=== PATIENT | female | born 1945 | race Caucasian/White ===

== ENCOUNTER 2016-10-15 09:18 | Inpatient (IN) | payer MEDICARE, BC ==
--- NOTE | ~2016-10-15 | DS ---
Discharge Summary [facility] [id number] [place]. [address] NAME: AMANUEL MONTESINOS : 45 STATUS : DIS IN PAT#: [id number] AGE: 71 ADM/REG DATE : 10/15/16 MR#: [id number] REPORT SERV DATE: 10/21/16 DICTATED BY: ROMANA HUFFMAN DATE: 10/20/16 REPORT STATUS : Draft TRANSCRIBED BY: MODL DATE: 10/20/16 ADMISSION DATE: 10/15/2016 DISCHARGE DATE: 10/19/2016 DISCHARGE DIAGNOSES: 1. Right hip fracture. 2. New-onset seizure. 3. Multiple sclerosis history. 4. Hypertension. 5. Anemia. 6. Prior deep vein thrombosis history. CONSULTATIONS: Dr. Mares with uncemented total hip arthroplasty, AML, right side. DISCHARGE MEDICATIONS: Gabapentin 300 mg one tab p.o. t.i.d., lisinopril 20 mg one tab p.o. daily, warfarin 2.5 mg one tab p.o. daily. Follow up INR with PCP or Orthopedics. Tramadol discontinued in the presence of new-onset seizures. Ambien to follow with PCP. Nexium 40 mg one tab p.o. daily. Fosamax 70 mg one tab p.o. daily. Halfprin 81 mg one tab p.o. daily, Nitrostat home dose, Depakote 500 mg one tab p.o. b.i.d. DISCHARGE DISPOSITION: Home with family. INSTRUCTIONS: Rolling walker for home use. ACTIVITY: As outlined by Physical Therapy. Low impact area. ADDITIONAL CONSULTATIONS: Neurology with outpatient followup with Dr. Tong for MS and new seizures. PCP in one week for CBC, calcium, chronic weight loss, and INR. MRI performed, no acute pathology. Udnn-ou-trcuqwcq burden or gliosis of nonspecific. 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 Postcontrast images were also obtained using 10 mL MultiHance . No enhancement on parenchyma. Cervical spine cord is not extrinsically compressed. Central right and left neuro foramen unremarkable. Pre and post contrast images, no abnormal enhancement to suggest recent infarct event or reparative phase of MS lesion. Ionized calcium was initially 3.51, was replaced, up to 4.83. TSH was 0.166; however, free T4 is 1.16, within normal limits. Total protein 5.2, albumin 2.7. HOSPITAL COURSE: Please see H and P for complete details. HISTORY OF PRESENT ILLNESS: Briefly, Ms. Montesinos is a very pleasant 71-year-old female, who presents after having new-onset seizure with mild postictal state, but no loss of bowel or bladder. Has been on tramadol. Additionally, has history of MS, followed by her PCP. Neurologic workup did not show acute exacerbation of MS. Tramadol was held. The patient was placed on Depakote without any residuals. EEG had mildly abnormal nonspecific phase. Large amount of low voltage beta range activity may represent medication effect. The patient was evaluated by Neurology. Recommended followup with Dr. Tong for MS and Discharge Summary [address] [address] NAME: AMANUEL MONTESINOS : 45 STATUS : DIS IN PAT#: [id number] AGE: 71 ADM/REG DATE : 10/15/16 MR#: [id number] REPORT SERV DATE: 10/21/16 DICTATED BY: ROMANA HUFFMAN DATE: 10/20/16 REPORT STATUS : Draft TRANSCRIBED BY: MODL DATE: 10/20/16 seizure history. The patient did have hip repair by Dr. Mares. Tolerated and was ambulatory. After 24 hours with physical therapy, occupational therapy, recommendations for home. The patient was eager to return home. Did have mild postop anemia and transfused to build up hemoglobin reserve. The patient additionally was noted to have hypocalcemia and this was also replaced. The patient has been on chronic steroids for control of her MS, which may be causal episode of loss of calcium. The patient to follow with PCP for chronic weight loss. Has had screening done with PCP. The patient reports this has been suspected to be secondary to MS. All questions answered with the patient and family at bed side. The patient eager to return home, comfortable with discharge planning. Thank you, Dr. Choi, for allowing us to assist in the care of this wonderful patient. DICTATED BY: MD UMU Yin/PRADEEP Romana Huffman MD / [id number] CC: MD Marcelina Yin M.D.
--- NOTE | ~2016-10-15 | HP ---
History And Physical [address] [address] NAME: AMANUEL STEWARD : 45 STATUS : ADM IN [facility]#: [id number] AGE: 71 ADM/REG DATE : 10/15/16 MR#: [id number] REPORT SERV DATE: 10/15/16 DICTATED BY: TABATHA PAYTON DATE: 10/15/16 REPORT STATUS : Draft TRANSCRIBED BY: MODGonzalez DATE: 10/15/16 DATE OF ADMISSION: 10/15/2016 REASON FOR ADMISSION: Fractured right hip. HISTORY OF PRESENT ILLNESS: This is a 71-year-old white female, who has MS. She is followed by Dr. Marcelina Choi in [place]. She has occasional flare ups of the MS. The main manifestation of the MS has been occasional dizziness and weight loss. She has lost weight over the last two years of 50 pounds. She gets periodic IV steroid infusions from Dr. Choi. She had one two weeks ago. This morning, she stood up and went to [employer] as was her habit with her , and in [facility], she was standing and suddenly fell down, had a seizure lasted for about 2 to 4 minutes. She had a postictal state, was examined in the emergency room by Dr. Holliday. X-ray of the right hip where she is having the pain shows external rotation and fracture. She had consulted with Dr. Mares, who wants to admit the patient today for surgery. PAST MEDICAL HISTORY: She had a right breast cyst aspirated in the past, but no breast cancer; multiple sclerosis, longstanding; she has essential tremor for which she takes gabapentin that has resolved the problem. She has history of hypertension in the past as well. She has occasional angina pectoris, but has no known coronary artery disease. HOME MEDICATIONS: Fosamax 70 mg p.o. daily, aspirin enteric-coated 81 mg p.o. daily, Nexium 40 mg p.o. daily, gabapentin 300 mg p.o. three times a day, lisinopril 20 mg p.o. daily, nitroglycerin sublingually p.r.n., tramadol 50 mg p.o. p.r.n. pain, and Ambien CR 12.5 mg p.o. at bedtime. ALLERGIES: PENICILLIN, SULFA, HYDROCODONE CAUSES VOMITING. SOCIAL HISTORY: She takes no alcohol or drugs. She lives on [address] on [address], the first house in [place] from [place]. FAMILY HISTORY: Her first cousin was clinical nursing assistantgolf superintendent in [employer] [facility] [employer], and has some high blood pressure that seems to run in the family as well. REVIEW OF SYSTEMS: She says she had a flashing light prior to the blackout spells. She also has had history of migraines in the past with flashing lights. She has been disabled for about the last 30 years. The disability was from failure to heal of a fractured femur. Dr. Choi helped her get through the disability in the past. She had broken her foot in the past as well, and has had problems with bones healing and osteoporosis. She has had no neck pain, eye pain, double vision, fever, chills, night sweats, melena, History And Physical [address] [address] NAME: AMANUEL STEWARD : 45 STATUS : ADM IN [facility]#: [id number] AGE: 71 ADM/REG DATE : 10/15/16 MR#: [id number] REPORT SERV DATE: 10/15/16 DICTATED BY: TABATHA PAYTON DATE: 10/15/16 REPORT STATUS : Draft TRANSCRIBED BY: PRADEEP DATE: 10/15/16 hematemesis, nausea, vomiting, or diarrhea. She has not had a colonoscopy. She did have a mammogram a year or two ago that precipitated the aspiration of breast cyst. No prior fits, seizures, or convulsions. No blackout spells, nausea, vomiting, diarrhea, chest pain, or shortness of breath recently. The remainder of the review of systems is negative. PHYSICAL EXAMINATION: GENERAL: Elderly white female, in no acute distress. HEENT: EOMI. Sclerae clear. Conjunctivae pink. NECK: No bruit without any JVD. CHEST: Clear to A and P. HEART: Regular S1, S2 without murmur, gallop, or click. BREASTS: Grossly without mass. ABDOMEN: Soft, nontender. Bowel sounds are positive. No HSM. EXTREMITIES: There is external rotation of the right lower extremity. Tenderness in and around the hip. Distal pulses are intact with dorsalis pedis and posterior tibial. NEUROLOGIC: She withdraws to plantar stimulation. Glaze Maker is symmetric bilaterally. Coordination is intact. She has no tremor. She is symmetric and equal neurologically bilaterally. SKIN: Without rash, ecchymosis, or bruising. BREASTS: Grossly without mass. LABORATORY DATA: CT scan of the brain was negative for any acute injury or pathology. She had right acute hip fracture by pelvic x-ray. Sodium of 144, potassium 3.8, glucose 85, creatinine 0.49, and BUN 9. UA: 1 white cell, 1 red cell per high-powered field. Troponin is less than 0.02. Calcium 8.3. Liver tests were normal. ASSESSMENT: 1. Seizure, new onset. I am going to check an EEG. She had a prodrome with this migraine- like or with bright flashing lights. This may be the effective trigger for the seizure. Also multiple sclerosis may be part of the problem. We may defer the MRI scan as an outpatient to Dr. Choi. 2. Fractured hip secondary to fall. The right fractured hip is going to be repair by Dr. Mares soon. 3. Multiple sclerosis. 4. Hypertension. 5. Osteoporosis. 6. 50 pounds weight loss over the last two years. Dr. Choi is following. I am going to go ahead and check a pre-albumin on this now for evidence of malnutrition. 7. History of fracture of the leg about 30 years ago. Disability since that time with poorly healing fracture with osteoporosis. PLAN: We are going first to fix the hip. Dr. Mares is ready for surgery. We will proceed with that. I will get an EEG looking for evidence of seizure focus and consider adjusting History And Physical [address] [address] NAME: AMANUEL STEWARD : 45 STATUS : ADM IN [facility]#: [id number] AGE: 71 ADM/REG DATE : 10/15/16 MR#: [id number] REPORT SERV DATE: 10/15/16 DICTATED BY: TABATHA PAYTON DATE: 10/15/16 REPORT STATUS : Draft TRANSCRIBED BY: MODL DATE: 10/15/16 the antiepileptic drugs off the gabapentin that will go to 600 mg three times a day for now. DB/MODL Tabatha Payton M.D. / [id number] CC: MD Marcelina Alejandro M.D. W. Timothy Ballard, M.D.
--- NOTE | ~2016-10-15 | OP ---
Record Of Operation [facility] [address] [place]. [address] NAME: AMANUEL STEWARD : 45 STATUS : ADM IN PAT#: [id number] AGE: 71 ADM/REG DATE : 10/15/16 MR#: [id number] REPORT SERV DATE: 10/16/16 DICTATED BY: MICHELE MCKENZIE DATE: 10/16/16 REPORT STATUS : Draft TRANSCRIBED BY: MODGonzalez DATE: 10/16/16 DATE OF PROCEDURE: 10/15/2016 PREOPERATIVE DIAGNOSIS: Right displaced femoral neck fracture, previous IM nail. POSTOPERATIVE DIAGNOSIS: Right displaced femoral neck fracture, previous IM nail. PROCEDURE: Uncemented total hip arthroplasty, AML. SIDE: Right. MAINTENANCE MGR: ANESTHESIA: See chart. SIZE: See chart. ESTIMATED BLOOD LOSS: INDICATIONS FOR SURGERY: PROCEDURE: The patient was taken to the operating room and placed supine on the table without incident. Anesthetic was induced per the anesthesiologist. A Villafuerte catheter was placed by the nurse in the standard sterile technique. The correct side for the procedure was identified by preoperative markings and matched with the consent form. All personnel in the room were in agreement regarding the procedure, patient, and side. The patient was then carefully positioned and carefully padded and prepped and draped in the normal sterile fashion. The patient received prophylactic preoperative antibiotics at the appropriate time. The preoperative x-ray was brought up on the monitor. Again, this was reviewed with the staff in the room. According with the preoperative plan, and angled, an anterolateral incision was made centered over the trochanter extending from proximal posterior to distal anterior. Electrocautery was used to maintain meticulous hemostasis. The IT band was split in line with its fibers. A Charnley retractor was placed over saline moistened laps. A standard anterolateral approach to the hip was carried out dissecting in line with the vastus medialis fibers lifting the inferior 20% of the vastus medialis, proximally the interior 20% of the gluteus medius and gluteus minimus tendons off the anterior capsule. Periosteal elevator was used to elevate soft tissue gently directly off the proximal anterior femoral bone. Appropriate retractors were carefully placed. Complete anterior capsulectomy was performed. The hip was then carefully dislocated with a combination of traction maneuver by the greenhouse assistant and scooping the ball out of the socket with a Hohmann. A femoral neck osteotomy was marked according to what had been preoperatively planned with a broach as a template. The distance for the femoral neck osteotomy was measured with a ruler. A femoral neck osteotomy was made with an oscillating saw under appropriate retraction. Meticulous hemostasis was again obtained. The leg was then brought up out of the anterior bag and Record Of Operation [facility] [address] [place]. [address] NAME: AMANUEL STEWARD : 45 STATUS : ADM IN PAT#: [id number] AGE: 71 ADM/REG DATE : 10/15/16 MR#: [id number] REPORT SERV DATE: 10/16/16 DICTATED BY: MICHELE MCKENZIE DATE: 10/16/16 REPORT STATUS : Draft TRANSCRIBED BY: PRADEEP DATE: 10/16/16 positioned with the lower extremity in external rotation and slight flexion. Acetabular retractors were placed carefully palpating to be sure that they were directly on the bone. The acetabular labrum was excised with electrocautery and rongeur. Pulvinar fat was removed with a large curette and rongeur and again meticulous hemostasis was obtained. Sequential reamers were used in the acetabulum to 1 mm less than the final size which was chosen. This was felt to give excellent interference fit. The acetabular fossa was then copiously irrigated with pulsatile lavage and actual acetabular component was placed and impacted and checked to make sure it was down snug. The overall alignment was checked. The acetabular landscaping and groundskeeping laborer was then removed. Screws were placed in the standard fashion. A drill, depth gauge and self-tapping screw placement taking care not to plunge as the drill holes were carefully placed. A trial liner was then placed and attention directed back to the proximal femur. The leg was placed back into the anterior bag. The proximal femur was prepared using a box chisel following by a T-handled reamer to determine the intramedullary alignment. This was followed by sequential reamers stopping 0.5 mm below the chosen size. Sequential broaches were then used up to the final broach. Once it was seated in the appropriate position, a Calcar reamer was used to plane the proximal femur. Trial reduction was then done with a trial prosthetic ball and neck. A straight edge was used to compare the tip of the trochanter to center of the ball relationship to what had been noted on the preoperative x-ray. Careful reduction was then done of the total hip. Palpation was done to ascertain and compare leg lengths by palpating the nonoperative leg and also by checking soft tissue tension. The stability of the hip was checked in full extension with full external rotation and in full flexion with adduction, flexion and internal rotation. The hip was then re dislocated with a bone hook. The femoral trial and femoral broach were removed. The acetabulum was then prepared under appropriate retraction by removing the trial liner. A central hole eliminator was placed and tightened. The shell was irrigated out. The actual insert was placed and impacted and then checked to be sure it was down snug with a joker. The leg was again positioned in the bag. The proximal femur exposed, irrigated and the actual thermal prosthesis was taken from the telephone service representative and impacted. Once it was down, the trunnion was cleansed with a wet and dry lap and the prosthetic thermal head was placed and impacted and checked to be sure it was down snug. The acetabulum was irrigated and reduction was obtained. Again, we checked soft tissue tension, leg length and stability as described above. The hip was closed in a layered fashion with a 5 mm. Mersilene tape placed through a single drill hole in the proximal anterior/superior trochanter reattaching the gluteus medius and minimus fibers. The vastus lateralis, gluteus medius, and gluteus minimus were then closed in a sleeve. Drain was placed between the vastus and the IT band exiting distally anteriorly. The IT band was closed. Subcutaneous closure and skin closure were then obtained. A sterile dressing was applied. The patient was carefully positioned into a supine position and then awakened. The patient was then carefully transferred to the stretcher to be returned to the postoperative care unit without incident. COMPLICATION: SPECIMENS: Femoral head. ADDENDUM: Prior to reaming the femur, the nail was identified as they came through the Record Of Operation [address] [place]. [address] NAME: AMANUEL STEWARD : 45 STATUS : ADM IN PAT#: [id number] AGE: 71 ADM/REG DATE : 10/15/16 MR#: [id number] REPORT SERV DATE: 10/16/16 DICTATED BY: MICHELE MCKENZIE DATE: 10/16/16 REPORT STATUS : Draft TRANSCRIBED BY: PRADEEP DATE: 10/16/16 anterior aspect of the trochanter, was grasped with a vice gum mixer as well as a corkscrew, and was disimpacted from the bone. This was also after running a long drill bit down the center of the kevan to break up any bony ingrowth. Otherwise the procedure is as described above. WTB/PRADEEP Jaycee Mckenzie M.D. / [id number] CC: MD Marcelina Yin M.D.
--- NOTE | ~2016-10-15 | CN ---
Consultation Report [facility] [address] [place]. [address] NAME: AMANUEL STEWARD : 45 STATUS : ADM IN PAT#: [id number] AGE: 71 ADM/REG DATE : 10/15/16 MR#: [id number] REPORT SERV DATE: 10/16/16 DICTATED BY: STEPHANIE VARGHESE DATE: 10/16/16 REPORT STATUS : Draft TRANSCRIBED BY: PRADEEP DATE: 10/16/16 NEUROLOGY CONSULTATION DATE OF CONSULTATION: 10/16/2016 REASON FOR CONSULTATION: Seizure. HOSPITALIST: Elkin Roa M.D. HISTORY OF PRESENT ILLNESS: The patient is a 71-year-old female who has a past medical history of multiple sclerosis, she was diagnosed at the age of 50. She has never been on immunomodulatory therapy; however, her exacerbations have been treated per PCP with steroids. At 8 a.m. yesterday, the patient had a seizure. She was standing in line at [employer] for breakfast when she suddenly had a flash of bright lights. She described them as multicolored and brilliant. The next thing she knew, the EMS personnel was standing over her. Her was with her and he mentioned that she suddenly had a gaze look on her face and she "slumped to the floor." He noticed tonic activity and the patient was unresponsive. He did not see any clonic movement. The patient was out for 1-2 minutes and then came to, but she was very drowsy afterwards. The patient denies having any seizure in the past. When questioned more extensively, she did mention that she took an Ultram the night before for her chronic back pain. The patient denied having any fever, chills, nausea, vomiting, fatigue, or malaise prior to the episode. She did mention, however, that over the last year, she had lost approximately 50 pounds. Her PCP has placed her on steroid-type injections to help her gain weight. PAST MEDICAL HISTORY: Multiple sclerosis, essential tremor, hypertension, stable angina, GERD, osteoporosis, and insomnia. PAST SURGICAL HISTORY: Tubal ligation, cystocele repair, appendectomy, and left shoulder repair. HOME MEDICATION LIST: Includes Fosamax 70 mg weekly, aspirin 80 mg daily, Nexium 40 mg daily, Neurontin 300 mg t.i.d., Zestril 20 mg daily, Nitrostat 0.4 mg sublingual p.r.n., Ultram 50 mg daily, and Ambien CR 12.5 mg at bedtime. ALLERGIES: PENICILLIN, SULFA, AND HYDROCODONE. SOCIAL HISTORY: The patient is . She has five kids. She is retired. She does not smoke. She will occasionally have a glass of wine and denies the use of illicit drugs. FAMILY HISTORY: The patient's mother at the age of 90 from Alzheimer's. Her father at the age of 53 from a stroke and she has nine siblings. Consultation Report [facility] [id number] [place]. [address] NAME: AMANUEL STEWARD : 45 STATUS : ADM IN [facility]#: [id number] AGE: 71 ADM/REG DATE : 10/15/16 MR#: [id number] REPORT SERV DATE: 10/16/16 DICTATED BY: STEPHANIE VARGHESE DATE: 10/16/16 REPORT STATUS : Draft TRANSCRIBED BY: PRADEEP DATE: 10/16/16 REVIEW OF SYSTEMS: See HPI. PHYSICAL EXAMINATION: GENERAL: The patient is a 71-year-old female, who stands 5 feet 1 inch tall and weighs 115 pounds. She is afebrile. Heart rate 102, respiratory rate 20, O2 saturations on room air 95%, and blood pressure 97/54. NEURO: The patient is alert. She is oriented x4 and pleasant and has a jolly sense of humor, communicates appropriately. Cranial nerves 2 through 12 are intact. Vision is full via confrontation in both hughes. Vlilud-gi-hkqs: No ataxia. The patient has slight essential tremor bilaterally. No pronator drift. Upper DTRs are 1+ bilaterally. No reported sensory deficits. Upper extremity strength is 4/5 bilaterally. Lower extremity strength: 4/5 on the left, 2/5 on the right (recent right hip repair). Lower DTRs are 2+ bilaterally. Downgoing toes. No reported sensory deficits. The patient did not get up and ambulate. LABORATORY DATA: CBC: Relatively normal, H and H are 8.6 and 25.4. BMP, normal. TSH low at 0.166. UA negative for UTI. CT of the brain, no acute changes. EEG is pending. ASSESSMENT/PLAN: 1. Seizure. At this point, the patient will be placed on Depakote, we will put 1000 mg IV loading dose with 500 mg IV every 12 hours. Her Ultram will be discontinued since this can potentiate seizure activity. She will be placed on seizure precautions; Ativan 1 mg IV p.r.n. seizure only, and she has been instructed not to drive until seizure-free on medication for six months and safety precautions were gone over with the patient. She will follow up with Neurology outpatient. 2. Multiple sclerosis. Imaging will be done on the patient which would include an MRI of the brain and C-spine with and without gadolinium. Again, the patient will follow up with Neurology outpatient for further evaluation and treatment. Lab work will be drawn. 3. Fall with a fractured right femoral head and status post repair. 4. 50-pound weight loss over the last year. The patient will follow up with her PCP in regard to this. Thank you again for including us in consultation. We will follow with you. GEORGE/PRADEEP Stephanie Varghese DNP, [facility]- Consultation Report [address] [address] NAME: AMANUEL STEWARD : 45 STATUS : ADM IN [facility]#: [id number] AGE: 71 ADM/REG DATE : 10/15/16 MR#: [id number] REPORT SERV DATE: 10/16/16 DICTATED BY: STEPHANIE VARGHESE DATE: 10/16/16 REPORT STATUS : Draft TRANSCRIBED BY: PRADEEP DATE: 10/16/16 / [id number] CC: MD Marcelina Yin M.D.
--- NOTE | ~2016-10-15 | EEG ---
Electroencephalogram [address] [address] NAME: AMANUEL STEWARD : 45 STATUS : ADM IN PAT#: [id number] AGE: 71 ADM/REG DATE : 10/15/16 MR#: [id number] REPORT SERV DATE: 10/16/16 DICTATED BY: SHERMAN FAULKNER DATE: 10/16/16 REPORT STATUS : Draft TRANSCRIBED BY: PRADEEP DATE: 10/16/16 INTERPRETING PHYSICIAN: Sherman Faulkner M.D.-Neurology. REASON FOR THE EEG: New onset of seizures. 23 surface electrodes, 10-20 international placement was used. The patient was noted to be awake, drowsy, and asleep throughout the study. Photic stimulation was performed. Video monitoring was utilized. The background activity consisted of poorly-organized, [id number] voltage 9-10 cycles per second located in the posterior head regions. This activity appeared to attenuate with the eye opening maneuvers. Large amount of underlying low-voltage beta range activity was seen scattered throughout. During drowsiness and light sleep, increase of slower frequencies was noted. Intermittent, sharper in appearance waveforms were seen in the posterior head regions. No significant asymmetry of cerebral activity was seen. Sleep spindle and K-complexes were seen during stage 2 sleep. No abnormalities were noted during arousals. The patient's parimutuel clerk showed sinus rhythm, rate of approximately 78 beats per minute. No true paroxysmal or sustained paroxysmal activity was seen during the study. Isolated sharp activity with questionable phase reversal was seen in the posterior parietal regions. Photic stimulation did not bring out additional abnormalities and no driving response was observed. IMPRESSION: MILDLY ABNORMAL EEG CHARACTERIZED BY PRESENCE OF INCREASE OF NONSPECIFIC, SHARP IN APPEARANCE ACTIVITY IN THE POSTERIOR HEAD REGIONS. NO SIGNIFICANT ASYMMETRY OR PAROXYSMAL ACTIVITY WAS SEEN DURING THIS STUDY. LARGE AMOUNT OF LOW-VOLTAGE BETA RANGE ACTIVITY MAY REPRESENT MEDICATION EFFECT. CLINICAL CORRELATION IS RECOMMENDED. [place]RA[place]/PRADEEP Sherman Faulkner MD / [id number] CC: MD Marcelina Yin M.D.
[2016-10-15 11:03] LABS: BASOPHILS 0.1 %; BASOPHILS ABSOLUTE 0.01 10/3/uL (0.0-0.16); EOSINOPHILS 0.6 %; EOSINOPHILS ABSOLUTE 0.04 10/3/uL (0.0-0.53); ER CBC TAT 0 Hrs 05 Mins; HEMATOCRIT 38.8 % (36.0-48.0); HEMOGLOBIN 13.1 g/dL (12.0-16.0); IMMATURE GRANULOCYTES 0.3 %; IMMATURE GRANULOCYTES ABSOLUTE 0.02 10/3/uL (0.0-0.11); LYMPHOCYTES ABSOLUTE 1.07 10/3/uL (0.67-4.30); MEAN CORPUS HGB CONC 33.8 g/dL (32.0-36.0); MEAN CORPUSCULAR HEMOGLOB 32.8 pg (26.0-34.0); MEAN CORPUSCULAR VOLUME 97.2 fL (80-100); MEAN PLATELET VOLUME 10.9 fL (9.2-13.0); MONOCYTES ABSOLUTE 0.43 10/3/uL (0.21-1.20); NEUTROPHILS ABSOLUTE 5.56 10/3/uL (2.02-8.40); PLATELET COUNT 171 10/3/uL (150-400); RBC DISTRIBUTION WIDTH 13.4 % (12.0-16.0); RED CELL COUNT 3.99 10/6/uL (4.0-5.6); WHITE BLOOD CELLS 7.1 10/3/uL (4.5-10.5)
[2016-10-15 11:05] LABS: MANUAL DIFF NO %
[2016-10-15 11:21] LABS: A/G RATIO 1.3 (0.7-1.9); ALBUMIN 3.5 G/DL (3.5-5.0); ALKALINE PHOSPHATASE 74 U/L (45-117); BUN (BLOOD UREA NITROGEN) 9 MG/DL (6-23); CALCIUM, SERUM 8.3 MG/DL (8.5-10.4); CHLORIDE, SERUM 110 MMOL/L (96-112); CO2 (CARBON DIOXIDE) 29 MMOL/L (24-34); CREATININE 0.49 MG/DL (0.55-1.02); GFR AFRICAN AMERICAN 114 ML/MIN (>=60); GFR NON AFRICAN AMERICAN 98 ML/MIN (>=60); GLOBULIN 2.7 G/DL (2.5-4.1); GLUCOSE, SERUM 85 MG/DL (60-99); POTASSIUM, SERUM 3.8 MMOL/L (3.5-5.3); SGOT(AST) 32 U/L (5-40); SGPT(ALT) 36 U/L (5-65); SODIUM, SERUM 144 MMOL/L (135-148); TOTAL PROTEIN 6.2 G/DL (6.0-8.5); TROPONIN I <0.02 NG/ML (<0.05)
[2016-10-15 11:43] LABS: ASCORBIC ACID (UR NOT ORDER) NEG (NEG); BILIRUBIN, URINE NEGATIVE (NEG); ER URINALYSIS TAT 0 Hrs 09 Mins; KETONE, URINE NEGATIVE (NEG); LEUKOCYTE ESTERASE(NOT OR NEG (NEG); NITRITE (URINE) NEG (NEG); WBC (NOT ORDERED) (RFLEX) 1 (0-5)
[2016-10-15] MEDS ORDERED: ZESTRIL20 MG PO (11:47)
[2016-10-15] MEDS ORDERED: NEUR300 PO (11:48)
[2016-10-15] MEDS ORDERED: FOSAMAX70 MG PO (11:48)
[2016-10-15] MEDS ORDERED: ULTRAM50 PO (11:48)
[2016-10-15] MEDS ORDERED: NEXIUM40 PO (11:49)
[2016-10-15] MEDS ORDERED: HALF81 PO (11:50)
[2016-10-15] MEDS ORDERED: NITROSTAT0.4 MG SL (11:50)
[2016-10-15] MEDS ORDERED: AMBIEN CR12.5 MG PO (11:50)
[2016-10-15 23:24] LABS: INTERNATIONAL NORMAL RATI 1.1 UNITS (-); PROTIME (NOT ORD) 14.2 SEC (12.0-14.5)
[2016-10-15 23:41] LABS: PREALBUMIN 18.1 MG/DL (17.0-43.0); ULTRASENSITIVE TSH 0.166 MCIU/ML (0.358-3.740)
[2016-10-16 05:20] LABS: INTERNATIONAL NORMAL RATI 1.2 UNITS (-)
[2016-10-16 05:25] LABS: BUN (BLOOD UREA NITROGEN) 14 MG/DL (6-23); CALCIUM, SERUM 7.4 MG/DL (8.5-10.4); CHLORIDE, SERUM 111 MMOL/L (96-112); CO2 (CARBON DIOXIDE) 25 MMOL/L (24-34); CREATININE 0.65 MG/DL (0.55-1.02); GFR AFRICAN AMERICAN 104 ML/MIN (>=60); GFR NON AFRICAN AMERICAN 89 ML/MIN (>=60); GLUCOSE, SERUM 140 MG/DL (60-99); POTASSIUM, SERUM 4.4 MMOL/L (3.5-5.3); SODIUM, SERUM 142 MMOL/L (135-148)
[2016-10-16 05:58] LABS: HEMATOCRIT 25.4 % (36.0-48.0); HEMOGLOBIN 8.6 g/dL (12.0-16.0)
[2016-10-16 14:38] LABS: HEMATOCRIT 26.5 % (36.0-48.0); HEMOGLOBIN 8.9 g/dL (12.0-16.0)
[2016-10-16 16:48] LABS: ALBUMIN 2.7 G/DL (3.5-5.0); ALKALINE PHOSPHATASE 51 U/L (45-117); DIRECT BILIRUBIN < 0.1 MG/DL (0.0-0.4); FOLATE 14.7 NG/ML (>5.2); FREE T4 1.16 NG/DL (0.76-1.46); INDIRECT BILIRUBIN(NOT ORDER) 0.9 MG/DL (0.1-0.9); SGOT(AST) 26 U/L (5-40); SGPT(ALT) 28 U/L (5-65); T4 (THYROXINE) TOTAL 9.6 MCG/DL (4.5-12.0); TOTAL PROTEIN 5.2 G/DL (6.0-8.5)
[2016-10-17 04:46] LABS: BASOPHILS 0 %; EOSINOPHILS 0 %; HEMOGLOBIN 7.2 g/dL (12.0-16.0); IMMATURE GRANULOCYTES 0.3 %; IMMATURE GRANULOCYTES ABSOLUTE 0.02 10/3/uL (0.0-0.11); LYMPHOCYTES 14.1 %; MEAN CORPUS HGB CONC 32.6 g/dL (32.0-36.0); MEAN CORPUSCULAR HEMOGLOB 32.3 pg (26.0-34.0); MEAN CORPUSCULAR VOLUME 99.1 fL (80-100); MEAN PLATELET VOLUME 11.2 fL (9.2-13.0); MONOCYTES 11.7 %; MONOCYTES ABSOLUTE 0.91 10/3/uL (0.21-1.20); NEUTROPHILS 73.9 %; NEUTROPHILS ABSOLUTE 5.75 10/3/uL (2.02-8.40); PLATELET COUNT 121 10/3/uL (150-400); WHITE BLOOD CELLS 7.8 10/3/uL (4.5-10.5)
[2016-10-17 04:47] LABS: HEMATOCRIT 22.1 % (36.0-48.0); MANUAL DIFF NO %; RED CELL COUNT 2.23 10/6/uL (4.0-5.6)
[2016-10-17 04:53] LABS: INTERNATIONAL NORMAL RATI 1.1 UNITS (-); PROTIME (NOT ORD) 13.6 SEC (12.0-14.5)
[2016-10-17 05:05] LABS: BUN (BLOOD UREA NITROGEN) 14 MG/DL (6-23); CALCIUM, SERUM 7.6 MG/DL (8.5-10.4); CHLORIDE, SERUM 114 MMOL/L (96-112); CO2 (CARBON DIOXIDE) 24 MMOL/L (24-34); CREATININE 0.67 MG/DL (0.55-1.02); GFR AFRICAN AMERICAN 102 ML/MIN (>=60); GFR NON AFRICAN AMERICAN 88 ML/MIN (>=60); GLUCOSE, SERUM 134 MG/DL (60-99); POTASSIUM, SERUM 4.3 MMOL/L (3.5-5.3); SODIUM, SERUM 146 MMOL/L (135-148)
[2016-10-17 17:32] LABS: HEMATOCRIT 26.1 % (36.0-48.0); HEMOGLOBIN 8.9 g/dL (12.0-16.0)
[2016-10-18 08:00] LABS: BASOPHILS 0.2 %; BASOPHILS ABSOLUTE 0.01 10/3/uL (0.0-0.16); EOSINOPHILS 1.9 %; EOSINOPHILS ABSOLUTE 0.11 10/3/uL (0.0-0.53); HEMATOCRIT 26.1 % (36.0-48.0); HEMOGLOBIN 8.7 g/dL (12.0-16.0); IMMATURE GRANULOCYTES 0.2 %; IMMATURE GRANULOCYTES ABSOLUTE 0.01 10/3/uL (0.0-0.11); LYMPHOCYTES 40.5 %; MEAN CORPUS HGB CONC 33.3 g/dL (32.0-36.0); MEAN CORPUSCULAR HEMOGLOB 32.8 pg (26.0-34.0); MEAN CORPUSCULAR VOLUME 98.5 fL (80-100); MEAN PLATELET VOLUME 11.1 fL (9.2-13.0); MONOCYTES 9.6 %; MONOCYTES ABSOLUTE 0.57 10/3/uL (0.21-1.20); NEUTROPHILS 47.6 %; NEUTROPHILS ABSOLUTE 2.83 10/3/uL (2.02-8.40); PLATELET COUNT 129 10/3/uL (150-400); RED CELL COUNT 2.65 10/6/uL (4.0-5.6); WHITE BLOOD CELLS 5.9 10/3/uL (4.5-10.5)
[2016-10-18 08:02] LABS: MANUAL DIFF NO %
[2016-10-18 08:08] LABS: INTERNATIONAL NORMAL RATI 1.1 UNITS (-); PROTIME (NOT ORD) 13.7 SEC (12.0-14.5)
[2016-10-18 08:10] LABS: BUN (BLOOD UREA NITROGEN) 9 MG/DL (6-23); CALCIUM, SERUM 8.3 MG/DL (8.5-10.4); CHLORIDE, SERUM 116 MMOL/L (96-112); CO2 (CARBON DIOXIDE) 31 MMOL/L (24-34); CREATININE 0.49 MG/DL (0.55-1.02); GFR AFRICAN AMERICAN 114 ML/MIN (>=60); GFR NON AFRICAN AMERICAN 98 ML/MIN (>=60); GLUCOSE, SERUM 83 MG/DL (60-99); POTASSIUM, SERUM 3.8 MMOL/L (3.5-5.3); SODIUM, SERUM 151 MMOL/L (135-148)
[2016-10-19 06:09] LABS: BASOPHILS 0.2 %; BASOPHILS ABSOLUTE 0.01 10/3/uL (0.0-0.16); EOSINOPHILS 3.6 %; HEMATOCRIT 27.3 % (36.0-48.0); HEMOGLOBIN 8.9 g/dL (12.0-16.0); IMMATURE GRANULOCYTES 0.2 %; IMMATURE GRANULOCYTES ABSOLUTE 0.01 10/3/uL (0.0-0.11); LYMPHOCYTES 40.9 %; LYMPHOCYTES ABSOLUTE 2.24 10/3/uL (0.67-4.30); MEAN CORPUS HGB CONC 32.6 g/dL (32.0-36.0); MEAN CORPUSCULAR HEMOGLOB 31.8 pg (26.0-34.0); MEAN CORPUSCULAR VOLUME 97.5 fL (80-100); MEAN PLATELET VOLUME 10.6 fL (9.2-13.0); MONOCYTES 7.7 %; MONOCYTES ABSOLUTE 0.42 10/3/uL (0.21-1.20); NEUTROPHILS 47.4 %; PLATELET COUNT 159 10/3/uL (150-400); RBC DISTRIBUTION WIDTH 15.3 % (12.0-16.0); WHITE BLOOD CELLS 5.5 10/3/uL (4.5-10.5)
[2016-10-19 06:10] LABS: MANUAL DIFF NO %
[2016-10-19 06:14] LABS: PROTIME (NOT ORD) 13.2 SEC (12.0-14.5)
[2016-10-19 06:21] LABS: BUN (BLOOD UREA NITROGEN) 9 MG/DL (6-23); CALCIUM, SERUM 8.4 MG/DL (8.5-10.4); CHLORIDE, SERUM 111 MMOL/L (96-112); CO2 (CARBON DIOXIDE) 30 MMOL/L (24-34); CREATININE 0.52 MG/DL (0.55-1.02); GFR AFRICAN AMERICAN 111 ML/MIN (>=60); GFR NON AFRICAN AMERICAN 96 ML/MIN (>=60); GLUCOSE, SERUM 95 MG/DL (60-99); POTASSIUM, SERUM 3.9 MMOL/L (3.5-5.3); SODIUM, SERUM 146 MMOL/L (135-148)
[2016-10-19] MEDS ORDERED: C25 (10:27)
[2016-10-19] MEDS ORDERED: PCET PO (10:34)
[2016-10-19] MEDS ORDERED: DEPAKOT500 PO (10:35)
== END 2016-10-19 12:46 | disposition home or self-care (01) | DRG 469 ==
LOC: ER 09:18 → 2SO 13:20
PROVIDERS: Emergency Medicine; Internal Medicine; Nurse Practitioner; Specialist; Student in an Organized Health Care Education/Training Program
PROC: 0SP904Z Removal of Internal Fixation Device from Right Hip Joint, Open Approach (ICD-10-PCS; 2016-10-15)
PROC: 0SR90JA Replacement of Right Hip Joint with Synthetic Substitute, Uncemented, Open Approach (ICD-10-PCS; principal; 2016-10-15 18:30)
PROC: 30233N1 Transfusion of Nonautologous Red Blood Cells into Peripheral Vein, Percutaneous Approach (ICD-10-PCS; 2016-10-17)
DX: S72.001A Fracture of unspecified part of neck of right femur, initial encounter for closed fracture (principal); G93.49 Other encephalopathy; G35 Multiple sclerosis; D64.9 Anemia, unspecified; E83.51 Hypocalcemia; D62 Acute posthemorrhagic anemia; G40.909 Epilepsy, unspecified, not intractable, without status epilepticus; I10 Essential (primary) hypertension; M81.0 Age-related osteoporosis without current pathological fracture; G89.29 Other chronic pain; M54.9 Dorsalgia, unspecified; K21.9 Gastro-esophageal reflux disease without esophagitis; I20.9 Angina pectoris, unspecified; W18.39XA Other fall on same level, initial encounter; I45.19 Other right bundle-branch block; Z82.3 Family history of stroke; Z88.0 Allergy status to penicillin; Z88.2 Allergy status to sulfonamides; Z88.5 Allergy status to narcotic agent; Z86.718 Personal history of other venous thrombosis and embolism; Z98.890 Other specified postprocedural states; Y92.511 Restaurant or cafe as the place of occurrence of the external cause
CPT/HCPCS: 36415; 70450; 70553; 71010; 72156; 72170; 73552-RT; 80048; 80053; 80076; 81001; 82140; 82306; 82330; 82607; 82746; 83735; 84134; 84436; 84439; 84443; 84484; 85014; 85018; 85025; 85610; 86850; 86900; 86901; 86920; 87641; 88305; 88311; 93005; 95819; 97116-GP; 97161-GP; 97166-GO; 97530-GP; 97535-GO; 99285; A9270-GY; A9577; C1713; C1776; G8978-CK-GP; G8979-CJ-GP; J0610; J1170; J1580; J1885; J2270; J2370; J2405; J2710; J2795; J3010; J3370; P9016